=== PATIENT | female | born 1955 | race Caucasian/White ===

== ENCOUNTER 2016-05-04 10:03 | Day surgery (SDCO) | payer OTHER ==
[~2016-05-04] VITALS: Ht 154.9 cm; Wt 52.3 kg
[2016-05-04 10:35] LABS: BASOPHIL 0.5 % (0-2); EOSINOPHIL 0.5 % (0-5); HCT 42.1 % (37.0-47.0); HGB 14.8 g/dl (12.5-16.0); LYMPHOCYTE 17.5 % (15-48); MCHC 35.2 g/dL (32.0-36.0); MCV 93.8 fL (78.0-100.0); MONOCYTE 5.5 % (0-12); MPV 9.8 fL (6.0-9.5); PLT 414 K/uL (150-400); RBC 4.49 M/uL (4.20-5.40); RDW 12.1 % (11.5-14.0); WBC 14.8 K/uL (4.0-10.5)
[2016-05-04 10:52] LABS: ALBUMIN 4.4 g/dL (3.4-4.8); BILIRUBIN - TOTAL 0.6 mg/dL (0.1-1.0); CREATININE 0.6 mg/dL (0.5-1.0); GLOBULIN (CALCULATION) 3.3 g/dL (2.2-4.2); MAGNESIUM 1.82 mg/dL (1.40-2.10); POTASSIUM 4.2 mmol/L (3.5-5.1); TOTAL PROTEIN 7.7 g/dL (6.4-8.3)
[2016-05-04 10:55] LABS: CKMB 2.07 ng/mL (0.97-4.94); INR 1.09 (0.9-1.2); MYOGLOBIN 22 ng/mL (26-65); PRO-BNP 80 pg/mL (0-125); PROTHROMBIN TIME 13.7 SECONDS (11.7-14.0); TROPONIN T < 0.010 ng/mL
[2016-05-04 10:56] LABS: PTT 34.8 SECONDS (23.2-31.4)
[2016-05-04 12:44] LABS: BILIRUBIN NEGATIVE (NEGATIVE); BLOOD 1+ Ery/uL (NEGATIVE); CLARITY CLEAR (CLEAR); COLOR YELLOW (YELLOW); GLUCOSE (U) NORMAL (NORMAL); KETONE (U) NEGATIVE (NEGATIVE); LEUKOCYTES NEGATIVE Leu/uL (NEGATIVE); NITRITE NEGATIVE (NEGATIVE); PROTEIN TRACE (LOW) mg/dL (NEGATIVE); SPECIFIC GRAVITY 1.025 (1.001-1.030); UROBILINOGEN 0.2 mg/dL (0.2-1.0)
[2016-05-04 12:58] LABS: BACTERIA 1+; CALCIUM OXALATE CRYSTALS MODERATE; URINARY RBC RARE
[2016-05-05 03:57] LABS: HCT 38.7 % (37.0-47.0); HGB 13.3 g/dl (12.5-16.0); MCH 32.8 pg (25.0-31.0); MCHC 34.4 g/dL (32.0-36.0); MCV 95.6 fL (78.0-100.0); MPV 9.7 fL (6.0-9.5); RBC 4.05 M/uL (4.20-5.40); RDW 11.9 % (11.5-14.0); WBC 6.7 K/uL (4.0-10.5)
[2016-05-05 04:15] LABS: CREATININE 0.7 mg/dL (0.5-1.0); POTASSIUM 4.2 mmol/L (3.5-5.1)
== END 2016-05-05 13:10 | disposition home or self-care (01) ==
LOC: FER 10:03 → FMS 14:20
PROVIDERS: Internal Medicine; ADMIT Internal Medicine
DX: R07.2 Precordial pain (principal); Z82.49 Family history of ischemic heart disease and other diseases of the circulatory system; Z88.5 Allergy status to narcotic agent; Z23 Encounter for immunization
CPT/HCPCS: 36415; 71010; 78452; 80048; 80053; 80061; 81001; 82550; 82553; 83735; 83874; 83880; 84484; 85025; 85379; 85610; 85730; 90732; 93005; 93017; A9500; G0009; G0378; J2405